=== PATIENT | female | born 1935 | race Caucasian/White ===

== ENCOUNTER 2020-10-11 09:00 | Inpatient (IN) | payer MEDICARE ==
[2020-10-11 09:39] LABS: #Basophils 0.1 thou/uL (0.0-0.2); #Eosinphils 0.3 thou/uL (0.0-0.7); #Lymphocytes 2.4 thou/uL (1.20-3.40); #Monocytes 0.9 thou/uL (0.11-0.59); #Neutrophils 4.6 thou/uL (1.40-6.50); %Basophils 0.8 % (0.0-1.0); %Eosinophils 3.1 % (0.0-10.0); %Lymphocytes 28.7 % (21.0-51.0); %Monocytes 11.4 % (0.0-10.0); Hemoglobin 12.3 g/dL (12.0-16.0); INR-International Normal Ratio 1.2; Mean Corpuscular HGB CONC 32.1 g/dL (32.0-36.0); Mean Corpuscular Hemoglobin 33.8 pg (27.0-31.0); Mean Platelet Volume 10.3 fL (7.4-10.4); Platelet Count 276 thou/uL (130-400); RBC Distribution Width 15.2 % (11.5-14.5); Red Blood Cell (RBC) Count 3.64 mill/uL (4.20-5.40); White Blood Cell (WBC) Count 8.3 thou/uL (4.8-10.8)
[2020-10-11 09:40] LABS: PTT 29.9 sec (22.9-36.1)
[2020-10-11 10:14] LABS: ALT (SGPT) 9 U/L (8-55); AST (SGOT) 30 U/L (5-34); Albumin 3.1 g/dL (3.4-4.8); Alkaline Phosphatase 99 U/L (40-110); Anion Gap 13 mmol/L (10-20); BUN (Urea Nitrogen) 8 mg/dL (9.8-20.1); Bilirubin, Total 0.6 mg/dL (0.2-1.2); Calc. Creatinine Clearance 0 mL/min (70-130); Calcium 8.8 mg/dL (7.8-10.44); Carbon Dioxide 25 mmol/L (23-31); Chloride 110 mmol/L (98-107); Globulin 3.2 g/dL (2.4-3.5); Glucose 95 mg/dL (83-110); Potassium 4.3 mmol/L (3.5-5.1); Protein, Total 6.3 g/dL (5.8-8.1); Sodium 144 mmol/L (136-145)
[2020-10-11] MEDS ORDERED: Metoprolol Tartrate 5 MG/5 ML VIAL ONE ×3 (10:20→13:32)
[2020-10-11 13:21] LABS: Bacteria/HPF None Seen HPF (None Seen); Bilirubin Negative (Negative); Blood, Urine Negative (Negative); Clarity Clear (Clear); Glucose, Urine (Dipstick) Normal (Negative); Ketone, Urine Negative (Negative); Leukocyte 250 Leu/uL (Negative); Nitrite Negative (Negative); Protein, Urine (Dipstick) Negative (Neg-Trace); RBC/HPF 0-3 HPF (0-3); Specific Gravity, Urine 1.033 (1.002-1.036); Urobilinogen Normal mg/dL (Less than 2)
[2020-10-11] MEDS ORDERED: Acetaminophen 325 MG TAB PO PRN (14:22)
[2020-10-11] MEDS ORDERED: Ondansetron ODT 4 MG TAB PO PRN (14:22)
[2020-10-11] MEDS ORDERED: Iopamidol-370 76% 500 ML 1 ML ONE (14:30)
[2020-10-11 14:44] LABS: Magnesium 1.8 mg/dL (1.6-2.6); Phosphorus 3.8 mg/dL (2.3-4.7)
[2020-10-11] MEDS ORDERED: Labetalol HCl 100 MG/20 ML VIAL SLOW IVP PRN (15:47)
[2020-10-11] MEDS ORDERED: Dronedarone HCl 400 MG TAB PO SCH (16:15)
[2020-10-11 17:44] VITALS: BMI 17.9
[2020-10-11] MEDS ORDERED: Ondansetron PF 4 MG/2 ML Vial IVP PRN (17:56)
[2020-10-11] MEDS ORDERED: traZODone HCl 50 MG TAB PO SCH (21:00)
[2020-10-11] MEDS ORDERED: rOPINIRole HCl 0.25 MG TAB PO SCH (21:00)
[2020-10-11] MEDS: Apixaban 2.5 MG TAB PO SCH (21:03)
[2020-10-11] MEDS: Metoprolol Tartrate 50 MG TAB PO SCH (21:03)
[2020-10-11 22:58] LABS: SARS-CoV-2 PCR by NAA Not Detected (NotDetected)
[2020-10-12] MEDS: Levothyroxine Sodium 25 MCG TAB PO SCH (05:16)
[2020-10-12 05:40] LABS: #Basophils 0.1 thou/uL (0.0-0.2); #Eosinphils 0.4 thou/uL (0.0-0.7); #Lymphocytes 2.5 thou/uL (1.20-3.40); #Neutrophils 5.5 thou/uL (1.40-6.50); %Basophils 1.2 % (0.0-1.0); %Lymphocytes 26.6 % (21.0-51.0); %Monocytes 10.6 % (0.0-10.0); %Neutrophils 57.6 % (42.0-75.0); Hemoglobin 10.9 g/dL (12.0-16.0); Mean Corpuscular HGB CONC 32.2 g/dL (32.0-36.0); Mean Corpuscular Hemoglobin 34.1 pg (27.0-31.0); Mean Platelet Volume 7.6 fL (7.4-10.4); Platelet Count 230 thou/uL (130-400); RBC Distribution Width 14.1 % (11.5-14.5); White Blood Cell (WBC) Count 9.5 thou/uL (4.8-10.8)
[2020-10-12 05:53] LABS: Anion Gap 14 mmol/L (10-20); BUN (Urea Nitrogen) 10 mg/dL (9.8-20.1); Calc. Creatinine Clearance 44 mL/min (70-130); Calcium 8.2 mg/dL (7.8-10.44); Carbon Dioxide 23 mmol/L (23-31); Chloride 111 mmol/L (98-107); Glucose 75 mg/dL (83-110); Potassium 3.5 mmol/L (3.5-5.1); Sodium 144 mmol/L (136-145)
[2020-10-12 07:00] LABS: Magnesium 1.7 mg/dL (1.6-2.6); Phosphorus 3.4 mg/dL (2.3-4.7)
[2020-10-12] MEDS: Aspirin 81 mg Enteric Coated Tablet PO SCH (08:33)
[2020-10-12] MEDS: Rosuvastatin 10 MG TAB PO SCH (08:34)
[2020-10-12] MEDS: Apixaban 2.5 MG TAB PO SCH ×2 (08:34→21:36)
[2020-10-12] MEDS: Metoprolol Tartrate 50 MG TAB PO SCH ×2 (08:35→21:37)
[2020-10-12] MEDS ORDERED: Cyanocobalamin 1000 MCG/ML VIAL IM SCH (09:00)
[2020-10-12] MEDS ORDERED: Dronedarone HCl 400 MG TAB PO SCH (09:00)
[2020-10-13 03:47] LABS: #Basophils 0.1 thou/uL (0.0-0.2); #Eosinphils 0.3 thou/uL (0.0-0.7); #Lymphocytes 2.3 thou/uL (1.20-3.40); #Monocytes 0.9 thou/uL (0.11-0.59); #Neutrophils 3.9 thou/uL (1.40-6.50); %Basophils 1.1 % (0.0-1.0); %Eosinophils 4.5 % (0.0-10.0); %Lymphocytes 30.9 % (21.0-51.0); %Monocytes 12.2 % (0.0-10.0); %Neutrophils 51.4 % (42.0-75.0); Hemoglobin 9.6 g/dL (12.0-16.0); Mean Corpuscular HGB CONC 31.3 g/dL (32.0-36.0); Mean Corpuscular Hemoglobin 33.1 pg (27.0-31.0); Mean Platelet Volume 7.7 fL (7.4-10.4); Platelet Count 224 thou/uL (130-400); RBC Distribution Width 14.2 % (11.5-14.5); Red Blood Cell (RBC) Count 2.91 mill/uL (4.20-5.40); White Blood Cell (WBC) Count 7.5 thou/uL (4.8-10.8)
[2020-10-13 04:06] LABS: Anion Gap 10 mmol/L (10-20); BUN (Urea Nitrogen) 10 mg/dL (9.8-20.1); Calc. Creatinine Clearance 49 mL/min (70-130); Calcium 7.8 mg/dL (7.8-10.44); Carbon Dioxide 24 mmol/L (23-31); Chloride 107 mmol/L (98-107); Glucose 81 mg/dL (83-110); Potassium 3.2 mmol/L (3.5-5.1); Sodium 138 mmol/L (136-145)
[2020-10-13] MEDS ORDERED: Potassium Chloride 20 MEQ TAB PO SCH (06:30)
[2020-10-13] MEDS: Levothyroxine Sodium 25 MCG TAB PO SCH (06:44)
[2020-10-13] MEDS: Aspirin 81 mg Enteric Coated Tablet PO SCH (08:08)
[2020-10-13] MEDS: Apixaban 2.5 MG TAB PO SCH ×2 (08:08→20:37)
[2020-10-13] MEDS: Metoprolol Tartrate 50 MG TAB PO SCH (08:08)
[2020-10-13] MEDS: Rosuvastatin 10 MG TAB PO SCH (08:08)
[2020-10-13] MEDS ORDERED: Digoxin 0.125 MG TAB PO SCH (09:00)
[2020-10-13] MEDS ORDERED: Cyanocobalamin 1000 MCG/ML VIAL IM SCH (12:00)
[2020-10-14] MEDS: Levothyroxine Sodium 25 MCG TAB PO SCH (05:53)
[2020-10-14 07:45] LABS: #Basophils 0.1 thou/uL (0.0-0.2); #Eosinphils 0.3 thou/uL (0.0-0.7); #Monocytes 0.8 thou/uL (0.11-0.59); #Neutrophils 3.7 thou/uL (1.40-6.50); %Basophils 1.1 % (0.0-1.0); %Eosinophils 4.8 % (0.0-10.0); %Lymphocytes 29.2 % (21.0-51.0); %Monocytes 11.9 % (0.0-10.0); Hemoglobin 11.5 g/dL (12.0-16.0); Mean Corpuscular HGB CONC 32.4 g/dL (32.0-36.0); Mean Corpuscular Hemoglobin 34.2 pg (27.0-31.0); Mean Platelet Volume 8.3 fL (7.4-10.4); Platelet Count 234 thou/uL (130-400); RBC Distribution Width 13.9 % (11.5-14.5); Red Blood Cell (RBC) Count 3.37 mill/uL (4.20-5.40); White Blood Cell (WBC) Count 6.9 thou/uL (4.8-10.8)
[2020-10-14 07:54] LABS: Anion Gap 9 mmol/L (10-20); Calc. Creatinine Clearance 44 mL/min (70-130); Calcium 8.9 mg/dL (7.8-10.44); Carbon Dioxide 28 mmol/L (23-31); Chloride 106 mmol/L (98-107); Glucose 75 mg/dL (83-110); Potassium 3.8 mmol/L (3.5-5.1); Sodium 139 mmol/L (136-145)
[2020-10-14 08:14] VITALS: TEMP 98.1
[2020-10-14 08:27] LABS: BUN (Urea Nitrogen) 7 mg/dL (9.8-20.1)
[2020-10-14] MEDS ORDERED: Digoxin 0.125 MG TAB PO SCH (09:00)
[2020-10-14] MEDS: Apixaban 2.5 MG TAB PO SCH (09:11)
[2020-10-14] MEDS: Rosuvastatin 10 MG TAB PO SCH (09:12)
[2020-10-14] MEDS: Aspirin 81 mg Enteric Coated Tablet PO SCH (09:12)
[2020-10-14 11:01] VITALS: BP 169/72
== END 2020-10-14 14:40 | DRG 884 ==
LOC: ERS 09:00 → OBSVTOIN 13:51 → 2SE 13:51
PROVIDERS: ADMIT Student in an Organized Health Care Education/Training Program; ATTEND Student in an Organized Health Care Education/Training Program
DX: F03.90 Unspecified dementia, unspecified severity, without behavioral disturbance, psychotic disturbance, mood disturbance, and anxiety (principal); I48.21 Permanent atrial fibrillation; G93.49 Other encephalopathy; I50.32 Chronic diastolic (congestive) heart failure; E44.0 Moderate protein-calorie malnutrition; Z68.1 Body mass index [BMI] 19.9 or less, adult; R64 Cachexia; N39.0 Urinary tract infection, site not specified; Z66 Do not resuscitate; G47.00 Insomnia, unspecified; Z96.653 Presence of artificial knee joint, bilateral; I11.0 Hypertensive heart disease with heart failure; K21.9 Gastro-esophageal reflux disease without esophagitis; G25.81 Restless legs syndrome; E03.9 Hypothyroidism, unspecified; F32.9 Major depressive disorder, single episode, unspecified; I45.10 Unspecified right bundle-branch block; Z88.6 Allergy status to analgesic agent; Z88.0 Allergy status to penicillin; Z88.2 Allergy status to sulfonamides; Z79.82 Long term (current) use of aspirin; Z79.899 Other long term (current) drug therapy; Z79.01 Long term (current) use of anticoagulants; Z79.890 Hormone replacement therapy; Z79.51 Long term (current) use of inhaled steroids; Z90.710 Acquired absence of both cervix and uterus; Z98.890 Other specified postprocedural states; Z20.822 Contact with and (suspected) exposure to COVID-19
CPT/HCPCS: 36415; 36416; 70450; 70496; 70498; 70551; 80048; 80053; 81003; 81015; 82607; 82746; 83036; 83605; 83735; 84100; 84439; 84443; 84484; 85025; 85610; 85730; 87040; 87086; 87635; 93005; 96374; 96376; G0378; J2405; J3420; J3475; J3490; Q9967; U0003; U0005

== ENCOUNTER 2021-10-01 00:56 | Inpatient (IN) | payer MEDICARE ==
[2021-10-01 01:27] LABS: #Basophils 0.1 thou/uL (0.0-0.2); #Eosinphils 0.2 thou/uL (0.0-0.7); #Lymphocytes 2.6 thou/uL (1.20-3.40); #Neutrophils 5.3 thou/uL (1.40-6.50); %Basophils 0.9 % (0.0-1.0); %Eosinophils 2.3 % (0.0-10.0); %Lymphocytes 28.5 % (21.0-51.0); %Monocytes 10.9 % (0.0-10.0); %Neutrophils 57.5 % (42.0-75.0); Hemoglobin 12.9 g/dL (12.0-16.0); Mean Corpuscular HGB CONC 32.3 g/dL (32.0-36.0); Mean Corpuscular Hemoglobin 32.2 pg (27.0-31.0); Mean Corpuscular Volume 99.7 fL (78.0-98.0); Mean Platelet Volume 8.5 fL (7.4-10.4); Platelet Count 227 thou/uL (130-400); RBC Distribution Width 12.6 % (11.5-14.5); White Blood Cell (WBC) Count 9.3 thou/uL (4.8-10.8)
[2021-10-01] MEDS ORDERED: hydrALAZINE 20 MG/ML VIAL ONE (01:38)
[2021-10-01] MEDS ORDERED: Ondansetron PF 4 MG/2 ML Vial ONE (01:38)
[2021-10-01 01:45] LABS: Bacteria/HPF None Seen HPF (None Seen); Bilirubin Negative (Negative); Blood, Urine Trace (Negative); Clarity Clear (Clear); Glucose, Urine (Dipstick) Normal (Negative); Ketone, Urine Negative (Negative); Leukocyte 500 Leu/uL (Negative); Nitrite Negative (Negative); Protein, Urine (Dipstick) Negative (Neg-Trace); RBC/HPF 0-3 HPF (0-3); Renal Epithelial 0-3 HPF (None Seen); Specific Gravity, Urine 1.015 (1.002-1.036); Squamous Epithelial 0-3 HPF (0-3); Urobilinogen Normal mg/dL (Less than 2); pH, Urine 5.5 (5.0-9.0)
[2021-10-01 01:48] LABS: INR-International Normal Ratio 1.2; PTT 33.5 sec (22.9-36.1); Prothrombin Time 15.5 sec (12.0-14.7)
[2021-10-01 01:54] LABS: ALT (SGPT) 7 U/L (8-55); AST (SGOT) 25 U/L (5-34); Albumin 4.1 g/dL (3.4-4.8); Alkaline Phosphatase 100 U/L (40-110); Anion Gap 16 mmol/L (10-20); BUN (Urea Nitrogen) 9 mg/dL (9.8-20.1); Bilirubin, Total 0.6 mg/dL (0.2-1.2); CK (CPK) 35 U/L (29-168); Calc. Creatinine Clearance 0 mL/min (70-130); Calcium 9.6 mg/dL (7.8-10.44); Carbon Dioxide 21 mmol/L (23-31); Chloride 104 mmol/L (98-107); Globulin 3.2 g/dL (2.4-3.5); Glucose 111 mg/dL (83-110); Potassium 4.5 mmol/L (3.5-5.1); Protein, Total 7.3 g/dL (5.8-8.1); Sodium 136 mmol/L (136-145)
[2021-10-01 01:59] LABS: Acetaminophen Less than 10.0 mcg/mL (10.0-30.0); Alcohol Less than 10 mg/dL (Less than 10); Salicylate Less than 8.0 mg/dL (15.0-30.0)
[2021-10-01] MEDS ORDERED: Prochlorperazine 10 MG/2 ML VIAL ONE (03:31)
[2021-10-01] MEDS ORDERED: Metoprolol Tartrate 5 MG/5 ML VIAL ONE ×3 (03:42→04:28)
[2021-10-01] MEDS ORDERED: Metoprolol Tartrate 5 MG/5 ML VIAL IVP PRN (03:55)
[2021-10-01] MEDS ORDERED: Ondansetron PF 4 MG/2 ML Vial IVP PRN (04:51)
[2021-10-01] MEDS ORDERED: Acetaminophen 650 MG Suppository PR PRN (04:51)
[2021-10-01] MEDS ORDERED: Acetaminophen 325 MG TAB PO PRN (04:51)
[2021-10-01] MEDS ORDERED: Ondansetron ODT 4 MG TAB PO PRN (04:51)
[2021-10-01] MEDS ORDERED: Diltiazem 125 MG in Sodium Chloride 0.9% 100 ML IVPB SCH (05:00)
[2021-10-01] MEDS: cefTRIAXone\\ROCEPHIN 1 GM in Sodium Chloride 0.9% 100 ML IVPB SCH (07:08)
[2021-10-01] MEDS: Aspirin 81 mg Enteric Coated Tablet PO SCH (09:09)
[2021-10-01] MEDS ORDERED: Iopamidol-370 76% 500 ML 1 ML ONE (10:13)
[2021-10-01] MEDS ORDERED: hydrALAZINE 20 MG/ML VIAL SLOW IVP PRN (12:33)
[2021-10-01] MEDS ORDERED: Lorazepam 0.5 MG TAB PO SCH (12:45)
[2021-10-01] MEDS ORDERED: Multivit, Adult Inj 10 ML VIAL IV SCH (12:45)
[2021-10-01 13:51] LABS: Anion Gap 16 mmol/L (10-20); BUN (Urea Nitrogen) 9 mg/dL (9.8-20.1); Calc. Creatinine Clearance 39 mL/min (70-130); Calcium 9.9 mg/dL (7.8-10.44); Carbon Dioxide 22 mmol/L (23-31); Cardiac Risk 2.2 (Less than 4.5); Chloride 101 mmol/L (98-107); Cholesterol 146 mg/dl (< 200 Desired); Glucose 129 mg/dL (83-110); HDL Cholesterol 67 mg/dL (>60 Neg Risk); LDL Cholesterol, Calculated 67 mg/dL; Magnesium 1.5 mg/dL (1.6-2.6); Phosphorus 3.1 mg/dL (2.3-4.7); Potassium 3.1 mmol/L (3.5-5.1); Sodium 136 mmol/L (136-145); Triglycerides 59 mg/dL (Less than 150)
[2021-10-01] MEDS: Multivitamins, Adult 10 ML in D5 0.9% NS w/ 20 mEq KCl 1,000 ML IV SCH (14:05)
[2021-10-01] MEDS: D5 0.9% NS w/ 20 mEq KCl 1,000 ML IV SCH (14:10)
[2021-10-01] MEDS ORDERED: Electrolyte Replacement Protocol FS PRN (15:00)
[2021-10-01] MEDS ORDERED: Electrolyte Replacement Protocol 1 EACH FS SCH (15:00)
[2021-10-01] MEDS ORDERED: Cyanocobalamin 1000 MCG/ML VIAL IM SCH (15:00)
[2021-10-01] MEDS: Magnesium Sulfate 4 GM in Sodium Chloride 0.9% 250 ML 250 ML IVPB SCH ×2 (15:09→18:42)
[2021-10-01] MEDS: Potassium Chloride 10 MEQ in Premix Bag 1 BAG IVPB SCH ×3 (18:42→21:58)
[2021-10-01] MEDS: Potassium Chloride 20 MEQ in Premix Bag 1 BAG IVPB SCH (18:47)
[2021-10-01] MEDS ORDERED: Atorvastatin Calcium 40 MG TAB PO SCH (21:00)
[2021-10-01] MEDS ORDERED: Non-Formulary Item 1 EACH (Esomeprazole Magnesium [Nexium Oral Suspension] 40 MG Suspdr.P PO SCH (21:00)
[2021-10-01] MEDS: Apixaban 2.5 MG TAB PO SCH (21:59)
[2021-10-01] MEDS: Flecainide 50 MG TAB PO SCH (21:59)
[2021-10-01] MEDS: Metoprolol Tartrate 50 MG TAB PO SCH (22:00)
[2021-10-01] MEDS: Rosuvastatin 10 MG TAB PO SCH (22:00)
[2021-10-01] MEDS: rOPINIRole HCl 0.25 MG TAB PO SCH (22:01)
[2021-10-02] MEDS: Brimonidine Tartrate 0.2% Ophth Soln 5 ml Bottle EA EYE SCH ×2 (00:05→20:50)
[2021-10-02] MEDS: Latanoprost 0.005% Ophth Soln 2.5 ml Bottle EA EYE SCH ×2 (00:14→20:50)
[2021-10-02] MEDS: Timolol 0.5% Ophth Soln 5 ml Bottle EA EYE SCH ×2 (00:17→20:50)
[2021-10-02] MEDS: Potassium Chloride 10 MEQ in Premix Bag 1 BAG IVPB SCH (00:19)
[2021-10-02 03:27] LABS: #Basophils 0.1 thou/uL (0.0-0.2); #Lymphocytes 1.5 thou/uL (1.20-3.40); #Monocytes 0.8 thou/uL (0.11-0.59); #Neutrophils 9.1 thou/uL (1.40-6.50); %Basophils 0.5 % (0.0-1.0); %Eosinophils 0.3 % (0.0-10.0); %Lymphocytes 12.9 % (21.0-51.0); %Monocytes 7.2 % (0.0-10.0); %Neutrophils 79.2 % (42.0-75.0); Hemoglobin 10.4 g/dL (12.0-16.0); Mean Corpuscular Hemoglobin 31.6 pg (27.0-31.0); Mean Corpuscular Volume 98.9 fL (78.0-98.0); Mean Platelet Volume 8.4 fL (7.4-10.4); Platelet Count 204 thou/uL (130-400); RBC Distribution Width 12.6 % (11.5-14.5); Red Blood Cell (RBC) Count 3.29 mill/uL (4.20-5.40); White Blood Cell (WBC) Count 11.5 thou/uL (4.8-10.8)
[2021-10-02 03:48] LABS: Phosphorus 2.6 mg/dL (2.3-4.7)
[2021-10-02 03:51] LABS: Anion Gap 12 mmol/L (10-20); BUN (Urea Nitrogen) 8 mg/dL (9.8-20.1); Calc. Creatinine Clearance 40 mL/min (70-130); Calcium 8.9 mg/dL (7.8-10.44); Carbon Dioxide 22 mmol/L (23-31); Chloride 107 mmol/L (98-107); Glucose 116 mg/dL (83-110); Magnesium 2.5 mg/dL (1.6-2.6); Potassium 4.3 mmol/L (3.5-5.1); Sodium 137 mmol/L (136-145)
[2021-10-02] MEDS: D5 0.9% NS w/ 20 mEq KCl 1,000 ML IV SCH ×2 (03:57→15:08)
[2021-10-02] MEDS: cefTRIAXone\\ROCEPHIN 1 GM in Sodium Chloride 0.9% 100 ML IVPB SCH (06:21)
[2021-10-02] MEDS: Levothyroxine Sodium 25 MCG TAB PO SCH (06:25)
[2021-10-02] MEDS ORDERED: Magnesium 2 GM/50 ML(in water) 2 GM in Premix Bag 1 BAG IVPB SCH (07:00)
[2021-10-02] MEDS: Flecainide 50 MG TAB PO SCH ×2 (07:37→20:46)
[2021-10-02] MEDS: Aspirin 81 mg Enteric Coated Tablet PO SCH (07:37)
[2021-10-02] MEDS: Apixaban 2.5 MG TAB PO SCH ×2 (07:37→20:49)
[2021-10-02] MEDS: Cyanocobalamin (Vitamin B-12) 1,000 MCG TAB PO SCH (07:37)
[2021-10-02] MEDS: Metoprolol Tartrate 50 MG TAB PO SCH ×2 (07:37→20:46)
[2021-10-02] MEDS: Senokot S 8.6-50 MG TAB PO SCH ×2 (08:44→20:50)
[2021-10-02] MEDS: Multivitamins, Adult 10 ML in D5 0.9% NS w/ 20 mEq KCl 1,000 ML IV SCH (15:07)
[2021-10-02 16:20] LABS: SARS-CoV-2 PCR by NAA Not Detected (NotDetected)
[2021-10-02] MEDS: rOPINIRole HCl 0.25 MG TAB PO SCH (20:46)
[2021-10-02] MEDS: Rosuvastatin 10 MG TAB PO SCH (20:46)
[2021-10-03] MEDS ORDERED: D5 0.9% NS w/ 20 mEq KCl 1,000 ML IV SCH (03:00)
[2021-10-03 03:54] LABS: #Basophils 0.1 thou/uL (0.0-0.2); #Eosinphils 0.4 thou/uL (0.0-0.7); #Lymphocytes 2.2 thou/uL (1.20-3.40); #Monocytes 0.7 thou/uL (0.11-0.59); %Basophils 1.1 % (0.0-1.0); %Eosinophils 4.2 % (0.0-10.0); %Lymphocytes 26.1 % (21.0-51.0); %Monocytes 8.7 % (0.0-10.0); %Neutrophils 59.8 % (42.0-75.0); Hemoglobin 10.3 g/dL (12.0-16.0); Mean Corpuscular HGB CONC 31.4 g/dL (32.0-36.0); Mean Corpuscular Hemoglobin 31.5 pg (27.0-31.0); Mean Platelet Volume 8.5 fL (7.4-10.4); Platelet Count 185 thou/uL (130-400); RBC Distribution Width 12.6 % (11.5-14.5); Red Blood Cell (RBC) Count 3.27 mill/uL (4.20-5.40); White Blood Cell (WBC) Count 8.3 thou/uL (4.8-10.8)
[2021-10-03 04:17] LABS: Anion Gap 11 mmol/L (10-20); BUN (Urea Nitrogen) 8 mg/dL (9.8-20.1); Calc. Creatinine Clearance 46 mL/min (70-130); Calcium 8.8 mg/dL (7.8-10.44); Carbon Dioxide 21 mmol/L (23-31); Chloride 111 mmol/L (98-107); Glucose 96 mg/dL (83-110); Magnesium 1.7 mg/dL (1.6-2.6); Phosphorus 2.9 mg/dL (2.3-4.7); Potassium 4.3 mmol/L (3.5-5.1); Sodium 139 mmol/L (136-145)
[2021-10-03] MEDS: Labetalol HCl 100 MG/20 ML VIAL SLOW IVP PRN ×2 (04:29→08:19)
[2021-10-03] MEDS: cefTRIAXone\\ROCEPHIN 1 GM in Sodium Chloride 0.9% 100 ML IVPB SCH (05:52)
[2021-10-03] MEDS: Levothyroxine Sodium 25 MCG TAB PO SCH (05:55)
[2021-10-03] MEDS ORDERED: Magnesium 2 GM/50 ML(in water) 2 GM in Premix Bag 1 BAG IVPB SCH (07:00)
[2021-10-03] MEDS: Apixaban 2.5 MG TAB PO SCH (08:09)
[2021-10-03] MEDS: Flecainide 50 MG TAB PO SCH (08:09)
[2021-10-03] MEDS: Aspirin 81 mg Enteric Coated Tablet PO SCH (08:09)
[2021-10-03] MEDS: Senokot S 8.6-50 MG TAB PO SCH (08:09)
[2021-10-03] MEDS: Cyanocobalamin (Vitamin B-12) 1,000 MCG TAB PO SCH (08:10)
[2021-10-03] MEDS: Metoprolol Tartrate 50 MG TAB PO SCH (08:10)
[2021-10-03] MEDS ORDERED: Multivit, Therapeutic 1 TAB PO SCH (09:00)
[2021-10-03 09:25] VITALS: BMI 19.1
[2021-10-03] MEDS ORDERED: cloNIDine 0.1 MG TAB PO PRN (12:44)
[2021-10-03] MEDS ORDERED: Amlodipine 5 MG TAB PO SCH (13:15)
[2021-10-03] MEDS ORDERED: Metoprolol Tartrate 25 MG TAB PO SCH (13:30)
[2021-10-03 13:35] VITALS: TEMP 98.8
[2021-10-03 15:43] VITALS: BP 170/69
[2021-10-03] MEDS ORDERED: Cefdinir 300 MG CAP PO SCH (21:00)
== END 2021-10-03 16:50 | disposition home health service (06) | DRG 689 ==
LOC: ERS 00:56 → IMCU/EMU 03:20
PROVIDERS: ADMIT Student in an Organized Health Care Education/Training Program; ATTEND Internal Medicine
DX: N39.0 Urinary tract infection, site not specified (principal); G92.8 Other toxic encephalopathy; I16.1 Hypertensive emergency; G25.81 Restless legs syndrome; G47.00 Insomnia, unspecified; I65.01 Occlusion and stenosis of right vertebral artery; Z20.822 Contact with and (suspected) exposure to COVID-19; R33.9 Retention of urine, unspecified; I48.0 Paroxysmal atrial fibrillation; E53.8 Deficiency of other specified B group vitamins; E78.5 Hyperlipidemia, unspecified; Z96.653 Presence of artificial knee joint, bilateral; K21.9 Gastro-esophageal reflux disease without esophagitis; F41.9 Anxiety disorder, unspecified; I08.3 Combined rheumatic disorders of mitral, aortic and tricuspid valves; E87.6 Hypokalemia; E86.0 Dehydration; D53.9 Nutritional anemia, unspecified; E03.9 Hypothyroidism, unspecified; E83.42 Hypomagnesemia; F03.90 Unspecified dementia, unspecified severity, without behavioral disturbance, psychotic disturbance, mood disturbance, and anxiety; Z88.8 Allergy status to other drugs, medicaments and biological substances; Z88.2 Allergy status to sulfonamides; Z88.0 Allergy status to penicillin; Z88.5 Allergy status to narcotic agent; Z90.710 Acquired absence of both cervix and uterus; Z79.01 Long term (current) use of anticoagulants
CPT/HCPCS: 36415; 36416; 51701; 70450; 70496; 70498; 71045; 72125; 80048; 80061; 80307; 81003; 81015; 82550; 82607; 82746; 83735; 84100; 84484; 85025; 85610; 85730; 86140; 87040; 87086; 93005; 93306; 95712; 95816; 95819; 95957; 96374; 96375; J0360; J0696; J0780; J2405; J3420; J3475; J3480; J3490; J7050; Q9967; U0003; U0005